=== PATIENT | female | born 1980 | race Caucasian/White ===

== ENCOUNTER 2019-05-22 23:50 | Emergency (ER) | payer SELFPAY ==
[~2019-05-22] VITALS: Ht 160 cm; Wt 67.6 kg
[2019-05-23 00:05] VITALS: Ht 160 cm; Wt 67.6 kg
[2019-05-23 01:50] VITALS: BP 128/68
== END 2019-05-23 01:50 | disposition home or self-care (01) ==
LOC: ED 23:50
DX: K08.89 Other specified disorders of teeth and supporting structures (principal)
CPT/HCPCS: J1885; J2270; Q0162